=== PATIENT | male | born 1960 ===

== ENCOUNTER 2020-11-08 22:01 | Outpatient (REF) | payer SELFPAY ==
[2020-11-10 12:13] LABS: COVID-19 RT-PCR UVMMC Result Negative (Negative)
== END 2020-11-08 22:02 | disposition home or self-care (01) ==
LOC: NCHCN 22:01
PROVIDERS: Visit Provider Internal Medicine
DX: Z11.52 Encounter for screening for COVID-19
CPT/HCPCS: U0003